=== PATIENT | male | born 1950 | race Caucasian/White ===

== ENCOUNTER → 2017-02-27 19:23 | Outpatient (CLI) | payer MEDICARE | END | disposition home or self-care (01) | LOC: D.LABREF 19:23 | DX: N52.9 Male erectile dysfunction, unspecified (principal) ==

== ENCOUNTER → 2017-03-23 17:12 | Outpatient (CLI) | payer MEDICARE ==
[2017-03-23 18:10] LABS: % SATURATION 32 % (15-55); IRON 104 ug/dl (35-150); TOTAL IRON BIND CAPACITY 317 ug/dl (260-445); UNSAT IRON BIND CAPACITY 213 ug/dl (150-375)
== END | disposition home or self-care (01) ==
LOC: D.LABREF 17:12
PROVIDERS: Family Medicine
DX: E03.9 Hypothyroidism, unspecified (principal)

== ENCOUNTER 2020-04-09 14:55 | Emergency (ER) | payer SELFPAY ==
[~2020-04-09] VITALS: Ht 177.8 cm; Wt 86.4 kg
[2020-04-09 15:08] VITALS: Ht 177.8 cm; Wt 86.4 kg
[2020-04-09 15:56] LABS: BASOPHILS 0.1 % (0-2); EOSINOPHILS 0.2 % (0-7); HEMOGLOBIN 15.8 g/dL (13.5-17.5); IMMATURE GRANULOCYTES 0.2 % (0-5); LYMPHOCYTES 9.4 % (15-50); MCH 31.2 pg (26.0-34.0); MCHC 34.3 g/dL (31.0-37.0); MCV 90.7 fL (80.0-100.0); MEAN PLATELET VOLUME 9.2 fL (7.4-10.4); MONOCYTES 6.3 % (2-11); NEUTROPHILS 83.8 % (40-80); PLATELET COUNT 170 10x3/uL (130-400); RBC 5.07 10x6/uL (4.20-6.10); RDW 12.8 % (11.5-14.5); WBC 8.6 10x3/uL (4.8-10.8)
[2020-04-09 16:05] LABS: CALC OSMOLALITY 273 mosm/kg (275-300); CALCIUM 8.5 mg/dL (8.5-10.1); CARBON DIOXIDE 25.1 mmol/L (21.0-32.0); CHLORIDE - SERUM 103 mmol/L (98-107); CREATININE - SERUM 1.3 mg/dL (0.6-1.3); GLUCOSE 125 mg/dL (74-106); POTASSIUM - SERUM 3.6 mmol/L (3.5-5.1); SODIUM 136 mmol/L (136-145); UREA NITROGEN 14 mg/dL (7-18); eGFR NON AFRICAN AMERICAN 58 mL/min (90-120)
[2020-04-09 16:07] LABS: APTT 32.5 SECONDS (22.8-39.4); INR 1.13 (0.85-1.17); PROTIME 14.4 SECONDS (11.6-15.0)
[2020-04-09 16:20] LABS: ALBUMIN 3.7 g/dL (3.4-5.0); ALKALINE PHOSPHATASE 50 U/L (30-120); ALT (SGPT) 23 U/L (10-68); BILIRUBIN - TOTAL 0.56 mg/dL (0.2-1.3); CREATINE KINASE 163 UL (21-232); MAGNESIUM - SERUM 1.7 mg/dL (1.8-2.4); PROTEIN - SERUM 6.4 g/dL (6.4-8.2)
[2020-04-09 16:24] LABS: TROPONIN-I < 0.017 ng/mL (0.000-0.060)
[2020-04-09 17:20] LABS: BILIRUBIN NEGATIVE (NEGATIVE); KETONE NEGATIVE (NEGATIVE); NITRITE NEGATIVE (NEGATIVE); UROBILINOGEN NORMAL mg/dL (< 2)
[2020-04-09 20:12] VITALS: BP 132/77
== END 2020-04-10 02:45 | disposition home or self-care (01) ==
LOC: D.ER 14:55
PROVIDERS: Family Medicine
DX: R53.1 Weakness (principal); X30.XXXA Exposure to excessive natural heat, initial encounter